=== PATIENT | female | born 1940 | race African-American/Black ===

== ENCOUNTER 2017-01-19 16:53 | Inpatient (IN) | payer MEDICARE, BC ==
--- NOTE | 2017-01-19 17:20 | ED Physician Chart ---
Chief Complaint/HPI - Patient Information Date Seen:: 01/19/17 Time Seen:: 17:00 Chief Complaint:: anorexia History of Present Illness:: for 5 days or longer patient has been anorexic and spitting out her medications. Patient has been losing weight but son doesn't know how much weight she has lost. No recent fever. Allergies:: Allergies Allergy/AdvReac Type Severity Reaction Status Date / Time No Known Allergies Allergy Verified 09/07/16 16:54 Historian:: Family Member Review:: Nurse's Note Reviewed Review of Systems - Review of Systems General/Constitutional: No fever, No chills, Weight loss, Weakness, No diaphoresis, Loss of appetite Skin: No skin lesions Head: No headache Eyes: No loss of vision ENT: No earache Neck: No neck pain, Swelling Cardio Vascular: No chest pain, No palpitations Pulmonary: No SOB GI: No nausea, No vomiting G/U: No dysuria Musculoskeletal: No bone or joint pain Endocrine: No polyuria Psychiatric: No prior psych history Hematopoietic: No bruising Allergic/Immuno: No urticaria Neurological: No syncope, No focal symptoms Past Medical History - Past Medical History Past Medical History: Thyroid disorder, Dementia, Other (dementia for several years; hyperthyroidism) Family History: Other Social History: Other (former smoker; used alcohol moderately in the past) Surgical History: CABG, other (4 vessel CABG 8-10 years ago) Psychiatricy History: Dementia Medication: Reviewed Family Medical History - Family Member Mother History Unknown: Yes Physical Exam - Physical Examination Other Gen/Cons comments:: chronically ill appearing in NAD Head: Atraumatic Eyes: Lids, conjuctiva normal, PERRL Other Eyes comments:: arcus senilis Skin: Nl inspection, No rash, No skin lesions, No ecchymosis ENMT: External ears, nose nl, TM canals nl, Nasal exam nl Other Neck comments:: JVD at about 50 degrees head elevation Respiratory: Nl effort/Exclusion, Clear to Auscultation Cardio Vascular: RRR, No murmur, gallop, rubs GI: No tenderness/rebounding/guarding, No organomegaly, No hernia : No CVA tenderness Other Extremities comments:: extreme arthritis hands Neuro/Psych: No focal deficits Misc: Normal back Labs/Radiology/EKG Results - Lab Results Results: Laboratory Results - last 24 hr 01/19/17 01/19/17 01/19/17 17:00 17:00 17:00 WBC 4.8 D RBC 3.33 L Hgb 10.2 L Hct 30.4 L MCV 91.3 MCH 30.6 MCHC Differential 33.6 RDW 12.9 Plt Count 172 MPV 8.6 Neutrophils (Manual) 43 Lymphocytes 37 Monocytes 16 H Eosinophils 4 Platelet Estimate ADEQUATE Platelet Morphology NORMAL RBC Morph Micro Appear NORMAL Sodium 137 Potassium 3.7 Chloride 104 Carbon Dioxide 27.2 Anion Gap 9.5 BUN 29 H Creatinine 1.1 Est GFR ( Amer) TNP Est GFR (Non-Af Amer) TNP BUN/Creatinine Ratio 26.4 Glucose 101 Calcium 9.7 Total Bilirubin Direct Bilirubin AST ALT Alkaline Phosphatase Total Protein Albumin Globulin Albumin/Globulin Ratio Lipase TSH 19.77 H Urine Source Urine Color Urine Clarity Urine pH Ur Specific [place] Urine Protein Urine Glucose (UA) Urine Ketones Urine Blood Urine Nitrate Urine Bilirubin Urine Urobilinogen Ur Leukocyte Esterase Urine RBC Urine WBC Ur Epithelial Cells Amorphous Sediment Urine Bacteria 01/19/17 01/19/17 01/19/17 17:00 17:00 17:35 WBC RBC Hgb Hct MCV MCH MCHC Differential RDW Plt Count MPV Neutrophils (Manual) Lymphocytes Monocytes Eosinophils Platelet Estimate Platelet Morphology RBC Morph Micro Appear Sodium Potassium Chloride Carbon Dioxide Anion Gap BUN Creatinine Est GFR ( Amer) Est GFR (Non-Af Amer) BUN/Creatinine Ratio Glucose Calcium Total Bilirubin 0.4 Direct Bilirubin 0.09 AST 29 ALT 21 Alkaline Phosphatase 48 Total Protein 7.2 Albumin 4.0 Globulin 3.2 Albumin/Globulin Ratio 1.3 Lipase 13 TSH Urine Source RANDOM Urine Color YELLOW Urine Clarity HAZY Urine pH 5.5 Ur Specific [place] 1.020 Urine Protein 100 H Urine Glucose (UA) NEGATIVE Urine Ketones NEGATIVE Urine Blood MODERATE H Urine Nitrate NEGATIVE Urine Bilirubin NEGATIVE Urine Urobilinogen 0.2 Ur Leukocyte Esterase SMALL H Urine RBC 2-5 Urine WBC 50-100 H Ur Epithelial Cells FEW Amorphous Sediment MODERATE URATES Urine Bacteria MANY - Radiology Results Results: CXR: s/p sterniotomy; possible COPD - EKG Interpretations Rhythm: NSR [place]: normal Rate: 60 Comments:: T inversion inferior leads Assessment - Assessment General Assessment: at 2020 son very concerned that patient has pain right axilla and adjacent right side of back; stated the pain present recently when he moved her in bed. I checked the area and saw no rash and there seemed to be no tenderness. ED Septic Shock - . Is Septic Shock (SBP<90, OR Lactate>4 mmol\L) present?: No Reassessment (Disposition) - Reassessment Reassessment Condition:: Unchanged - Diagnosis Diagnosis:: dehydration; UTI; dementi; hypothyroidism; arthritis - Patient Disposition Admitted to:: Med/Surg Spoke to:: Ben Seymour Admitting Medical Physician:: Ben Seymour Condition at Disposition:: Stable, Unchanged
[2017-01-19 17:40] LABS: HEMATOCRIT 30.4 % (35.0-45.0); HEMOGLOBIN 10.2 gm/dL (11.7-16.1); MEAN CELL VOLUME 91.3 fl (81-100); MEAN CORPUSCULAR HEMOGLOBIN 30.6 pg (27.0-31.0); MEAN CORPUSCULAR HGB CONC 33.6 pg (28.0-36.0); MEAN PLATELET VOLUME 8.6 fl; PLATELET COUNT 172 Th/cmm (150-400); RED BLOOD COUNT 3.33 Mil/cmm (3.80-5.20); RED CELL DISTRIBUTION WIDTH 12.9 % (11.5-20.0); WHITE BLOOD COUNT 4.8 Th/cmm (4.8-10.8)
[2017-01-19 17:47] LABS: ANION GAP 9.5 (7.0-16.0); BUN - UREA NITROGEN 29 mg/dL (7-25); BUN/CREATININE RATIO 26.4; CALCIUM SERUM 9.7 mg/dL (8.6-10.3); CARBON DIOXIDE 27.2 mEq/L (21.0-31.0); CHLORIDE 104 mEq/L (98-107); CREATININE - SERUM 1.1 mg/dL (0.6-1.2); GLUCOSE 101 mg/dL (70-105); POTASSIUM SERUM 3.7 mEq/L (3.5-5.1); SODIUM SERUM 137 mEq/L (136-145)
[2017-01-19 17:51] LABS: ALB/GLOB RATIO 1.3 (1.0-1.8); BILIRUBIN,TOTAL 0.4 mg/dL (0.3-1.0)
[2017-01-19 17:52] LABS: BILIRUBIN,DIRECT 0.09 mg/dL (0.0-0.2)
[2017-01-19] MEDS ORDERED: Sodium Chloride 0.9% 1,000 ML IV ONE (17:56)
[2017-01-19 18:05] LABS: URINE AMORPHOUS SEDIMENT MODERATE URATES (NONE SEEN); URINE BACTERIA MANY /hpf (NONE SEEN); URINE BILIRUBIN NEGATIVE (NEGATIVE); URINE BLOOD MODERATE (NEGATIVE); URINE COLOR YELLOW; URINE EPITHELIAL CELLS FEW /lpf (FEW); URINE GLUCOSE (UA) NEGATIVE (NEGATIVE); URINE KETONE NEGATIVE (NEGATIVE); URINE PH 5.5; URINE PROTEIN 100 mg/dL (NEGATIVE); URINE UROBILINOGEN 0.2 E.U./dL (0.2 - 1.0)
[2017-01-19 18:06] LABS: URINE WBC 50-100 /hpf (0-5)
[2017-01-19 18:15] LABS: EOSINOPHIL 4 % (0-5); NEUTROPHILS 43 % (40-80); PLATELET ESTIMATE ADEQUATE (NORMAL); PLATELET MORPHOLOGY NORMAL (NORMAL); TOTAL CELLS COUNTED 100
[2017-01-20] MEDS ORDERED: Influenza Vaccine 0.5 mL Syr IM ONE (03:35)
[2017-01-20] MEDS ORDERED: Pneumococcal Vaccine 0.5 mL Vial IM ONE (03:35)
[2017-01-20 05:58] LABS: HEMATOCRIT 29.1 % (35.0-45.0); HEMOGLOBIN 9.7 gm/dL (11.7-16.1); MEAN CELL VOLUME 91.1 fl (81-100); MEAN CORPUSCULAR HEMOGLOBIN 30.3 pg (27.0-31.0); MEAN CORPUSCULAR HGB CONC 33.3 pg (28.0-36.0); PLATELET COUNT 164 Th/cmm (150-400); RED BLOOD COUNT 3.19 Mil/cmm (3.80-5.20); RED CELL DISTRIBUTION WIDTH 12.7 % (11.5-20.0); WHITE BLOOD COUNT 5.4 Th/cmm (4.8-10.8)
[2017-01-20 06:17] LABS: ALKALINE PHOSPHATASE 40 U/L (34-104); ANION GAP 12.7 (7.0-16.0); BILIRUBIN,TOTAL 0.3 mg/dL (0.3-1.0); BUN - UREA NITROGEN 23 mg/dL (7-25); BUN/CREATININE RATIO 28.8; CALCIUM SERUM 8.8 mg/dL (8.6-10.3); CARBON DIOXIDE 24.8 mEq/L (21.0-31.0); CHLORIDE 105 mEq/L (98-107); CHOLESTEROL 144 mg/dL (<200); CREATININE - SERUM 0.8 mg/dL (0.6-1.2); GLUCOSE 128 mg/dL (70-105); MAGNESIUM 1.6 mg/dL (1.9-2.7); POTASSIUM SERUM 3.5 mEq/L (3.5-5.1); SGOT 22 U/L (13-39); SGPT/ALT 16 U/L (7-52); SODIUM SERUM 139 mEq/L (136-145); TRIGLYCERIDES 94 mg/dL (<150)
--- NOTE | 2017-01-20 08:52 | Admit Criteria Form ---
Admit Criteria Forms - Admit Criteria Diagnosis: DEHYDRATION Clinical Indications for Admission to Inpatient Care (Place 'X' for any and all applicable criteria): Admission is indicated for ANY ONE of the following (1)(2)(3)(4)(5): [X ]I. Inpatient admission required rather than observation care (see Dehydration: Observation Care guideline as appropriate) because of ANY ONE of the following: [ ]a) Vomiting that is severe or persistent [ ]b) Severe electrolyte abnormalities requiring inpatient care [ ]c) Hemodynamic instability [ ]d) IV fluid to replace significant ongoing losses (greater than 3 L/m2 per day (10) (11) [ ]e) Parenteral nutrition regimen that must be implemented on inpatient basis [ X]f) Other condition,treatment or monitoring requiring inpatient admission [ ]II. Serious cause for dehydration requiring acute hospitalization (eg, bowel obstruction, increased intracranial pressure, infectious cause) Extended stay beyond goal length of stay may be needed for(1)(3 )(4)(17): [ ]a) Chronic severe dehydration [ ]b) Persistent vital sign changes, severe electrolyte imbalance, or diagnosed cause of dehydration that requires continued hospitalization (eg, bowel obstruction, increased intracranial pressure) [ ]c) Older patients (65 years or older) [ ]d) Severe comorbid illness (eg, renal failure, heart failure, poorly controlled diabetes) The original [employer] content created by [email or web address] has been revised. The portions of the content which have been revised are identified through the use of italic text or in bold, and [facility] has neither reviewed nor approved the modified material. All other unmodified content is copyright [facility]. Please see references footnoted in the original [facility] edition 2016 Admit Criteria Met?: Yes
[2017-01-20 09:02] LABS: BAND NEUTROPHILE 1 % (0-10); BASOPHIL 1 % (0-3); EOSINOPHIL 7 % (0-5); NEUTROPHILS 38 % (40-80); PLATELET ESTIMATE ADEQUATE (NORMAL); PLATELET MORPHOLOGY NORMAL (NORMAL); TOTAL CELLS COUNTED 100
--- NOTE | 2017-01-20 09:07 | Diagnostic Imaging Report ---
CHEST X-RAY: AP view INDICATION: Failure to thrive COMPARISON: Chest x-ray 09/07/2016 FINDINGS: Exam is limited due to positioning and rotation. No focal consolidation or effusions. Heart size is normal. Atherosclerosis is noted. There is evidence of prior median sternotomy. The osseous structures are intact. IMPRESSION: Limited exam due to positioning and rotation. Chronic lung changes are noted with no focal consolidation identified. Atherosclerotic vascular disease. Evidence of prior median sternotomy.
[2017-01-20 09:28] LABS: T4 TOTAL 2.64 ug/dl (6.09-12.23)
[2017-01-20] MEDS ORDERED: Mag Sulfate 2gm/50mL Premix 2 GM/50 ML BAG IV ONE (09:52)
[2017-01-20] MEDS: Albuterol/Ipratropium Neb 3 ML AERS HHN SCH ×3 (10:57→19:05)
--- NOTE | 2017-01-20 13:09 | History & Physical ---
REASON FOR ADMISSION: Failure to thrive, anorexia. HISTORY OF PRESENT ILLNESS: The patient is a 76-year-old -[place] lady with history of advanced dementia, hyperthyroidism, CAD status post CABG with 4-vessel bypass done about 8-10 years ago, history of osteoarthritis, former nicotine user who is pretty much bedbound per son's account. She was doing relatively well until about 6 days ago when she suddenly had pronounced and noticeable anorexia with a very minimal poor p.o. intake and decreased sensorium. On further questioning, son states that she looked a little weak a few weeks prior to that, but was still eating most her meals. She has no history of dysphagia and has not had any choking or coughing spells prior to this episode beginning. There is no history of fever, chills, diarrhea or abdominal pain. Per son's account, she does complain of right shoulder, arm pain, which is more pronounced when she is being picked up from bed. PERTINENT FINDINGS ON ADMISSION: Include a low H and H of 10/30, BUN of 29 and a TSH of 19.7 and a UA consistent with a UTI. The patient has been admitted to the telemetry topete for further management and care. PAST MEDICAL HISTORY: As noted above. PAST SURGICAL HISTORY: As noted above. FAMILY HISTORY: Noncontributory to this admission. SOCIAL HISTORY: Former smoker, no alcohol. No illicit drug usage. She is bedbound and lives with family at home. ALLERGIES: NKDA. OUTPATIENT MEDICATIONS: Tapazole 5 t.i.d., Coreg 12.5 b.i.d., vitamin D 50,000 units q week, Levaquin 250 every day, Namenda 5 every day, oxybutynin 5 mg t.i.d., and Zocor 40 mg q.p.m. REVIEW OF SYSTEMS: A good review of systems was not able to be provided, given that the patient is nonverbal, all other history was obtained per son's history. GENERAL: No fever or chills noted. CARDIAC: No chest pain or palpitations. PULMONARY: No cough or sputum production. GASTROINTESTINAL: No bowel habit changes. No abdominal pain, no diarrhea, nausea or vomiting. GENITOURINARY: No hematuria. NEUROLOGIC: Decreased sensorium as noted above. PHYSICAL EXAMINATION: VITAL SIGNS: Temperature 98.4, pulse 60, blood pressure 137/55, respirations 18, satting 98% on room air. GENERAL: She is a well-developed, thin, frail elderly female, not in acute distress. On verbal commands, she opens her eyes and nods her heads, but she is non-conversive. HEAD AND NECK: Normocephalic, atraumatic. Pupils reactive to light. CARDIOVASCULAR: Regular rate and rhythm. LUNGS: There are mild crackles and some wheezing noted bilaterally. ABDOMEN: Soft, supple, nontender, nondistended, normoactive bowel sounds. EXTREMITIES: On lower extremity, there is trace edema. NEUROLOGIC: Not able to be completely done given the patient's current condition. LABORATORY DATA: White count 4.8, H and H 10/30, platelet of 172. Chemistry was essentially within normal limits except for a BUN of 29. LFTs were within normal limits. TSH as mentioned above 19.7. UA, moderate blood, small leukocytosis, 50-100 wbc's. Chest x-ray, limited exam due to positioning and rotation. Chronic lung changes are noted with no focal consolidation. There is evidence of atherosclerotic vascular disease and evidence of mediastinotomy. IMPRESSION: 1. Failure to thrive, anorexia, likely secondary to urinary tract infection/sepsis and her current hypothyroidism state given her TSH results. 2. History of hyperthyroidism with an elevated TSH. 3. Urinary tract infection. 4. History of advanced dementia. 5. History of coronary artery disease status post CABG. 6. History of osteoarthritis. 7. History of right shoulder pain. PLAN: The patient has been admitted to telemetry for further management and care. She has been started on IV fluids D5 half NS at 75 mL per hour. She also has been started on Rocephin 1 gram q. 24 and also Remeron 30 mg at bedtime and Megace for appetite stimulation. Her Tapazole has been discontinued and her other medications will also be resumed. I have asked for an ST eval as well as a dietary eval. The patient will also be placed on nebulizer treatments and a followup x-ray will be done. A prealbumin level also has been asked for. JOB# [id number] [facility]
[2017-01-20] MEDS ORDERED: VTE Chemical Prophylaxis Screen/Admission MC PRN (15:24)
[2017-01-21 06:27] LABS: MEAN CORPUSCULAR HEMOGLOBIN 30.9 pg (27.0-31.0)
[2017-01-21 06:49] LABS: ANION GAP 7.7 (7.0-16.0); BUN - UREA NITROGEN 21 mg/dL (7-25); BUN/CREATININE RATIO 23.3; CALCIUM SERUM 9.3 mg/dL (8.6-10.3); CARBON DIOXIDE 25.5 mEq/L (21.0-31.0); CHLORIDE 108 mEq/L (98-107); CREATININE - SERUM 0.9 mg/dL (0.6-1.2); GLUCOSE 99 mg/dL (70-105); MAGNESIUM 2.2 mg/dL (1.9-2.7); POTASSIUM SERUM 4.2 mEq/L (3.5-5.1); SODIUM SERUM 137 mEq/L (136-145)
[2017-01-21 07:05] LABS: HEMATOCRIT 32.6 % (35.0-45.0); HEMOGLOBIN 11.1 gm/dL (11.7-16.1); RED BLOOD COUNT 3.59 Mil/cmm (3.80-5.20); WHITE BLOOD COUNT 6.7 Th/cmm (4.8-10.8)
[2017-01-21 07:06] LABS: MEAN PLATELET VOLUME 8.4 fl; PLATELET COUNT 189 Th/cmm (150-400); RED CELL DISTRIBUTION WIDTH 12.7 % (11.5-20.0)
[2017-01-21] MEDS: Albuterol/Ipratropium Neb 3 ML AERS HHN SCH ×4 (07:23→18:46)
[2017-01-21 09:13] LABS: T4 FREE 0.37 ng/dL (0.82-1.77)
--- NOTE | 2017-01-21 09:27 | Diagnostic Imaging Report ---
CHEST X-RAY: AP view INDICATION: Crackles COMPARISON: Chest x-ray on 01/19/2017 FINDINGS: Chronic lung changes are seen with left basal atelectatic changes. No evidence of christian CHF. Cardiomegaly is noted atherosclerosis. There is rightward deviation of the trachea. IMPRESSION: Chronic lung changes and left basal atelectasis. No evidence of christian CHF. No focal consolidation identified. Cardiomegaly and atherosclerosis. Rightward deviation of the trachea. Findings may be due to an enlarged thyroid goiter or other mass lesions. Recommend short-term follow-up with CT of the chest probable with IV contrast.
[2017-01-21 11:08] LABS: EOSINOPHIL 6 % (0-5); NEUTROPHILS 32 % (40-80); PLATELET ESTIMATE ADEQUATE (NORMAL); PLATELET MORPHOLOGY NORMAL (NORMAL); TOTAL CELLS COUNTED 100
[2017-01-21 13:09] LABS: CARCINOEMBRYONIC ANTIGEN 5.1 ng/mL (0.0-4.7)
[2017-01-21] MEDS: Ferrous Sulfate 325 MG TAB PO SCH ×2 (16:46→21:28)
[2017-01-22 05:58] LABS: % BASOPHILS 0.5 % (0.0-2.0); % EOSINOPHILS 4.3 % (0.0-5.0); % LYMPHOCYTES 34.9 % (20.0-50.0); % MONOCYTES 13.7 % (2.0-10.0); % NEUTROPHILS 46.6 % (40.0-80.0); HEMOGLOBIN 10.1 gm/dL (11.7-16.1); MEAN CELL VOLUME 90.5 fl (81-100); MEAN CORPUSCULAR HEMOGLOBIN 30.6 pg (27.0-31.0); MEAN CORPUSCULAR HGB CONC 33.9 pg (28.0-36.0); MEAN PLATELET VOLUME 8.3 fl; NEUTROPHILE ABSOLUTE 3.7 Th/cmm (1.8-8.0); PLATELET COUNT 206 Th/cmm (150-400); RED BLOOD COUNT 3.31 Mil/cmm (3.80-5.20); RED CELL DISTRIBUTION WIDTH 12.8 % (11.5-20.0); WHITE BLOOD COUNT 7.8 Th/cmm (4.8-10.8)
[2017-01-22 06:15] LABS: ANION GAP 10.2 (7.0-16.0); BUN - UREA NITROGEN 23 mg/dL (7-25); BUN/CREATININE RATIO 28.8; CALCIUM SERUM 9.5 mg/dL (8.6-10.3); CARBON DIOXIDE 25.7 mEq/L (21.0-31.0); CHLORIDE 107 mEq/L (98-107); CREATININE - SERUM 0.8 mg/dL (0.6-1.2); GLUCOSE 97 mg/dL (70-105); POTASSIUM SERUM 3.9 mEq/L (3.5-5.1); SODIUM SERUM 139 mEq/L (136-145)
[2017-01-22] MEDS: Albuterol/Ipratropium Neb 3 ML AERS HHN SCH ×4 (07:20→19:08)
[2017-01-22] MEDS: Ferrous Sulfate 325 MG TAB PO SCH ×3 (09:46→21:09)
--- NOTE | 2017-01-22 10:50 | Diagnostic Imaging Report ---
CT Chest without IV contrast HISTORY: Mass, goiter COMPARISON: Chest x-ray the same day. Technique: Axial images were obtained from the base of the neck to the upper abdomen without IV contrast. Reconstructions were made. Total DLP 193, CTD I 191 Findings: The patient is status post median sternotomy. There is a massively enlarged thyroid goiter with heterogeneity and probable small nodules. On the left this area measures 8 cm transverse x 10 cm craniocaudal with mass effect upon the trachea and leftward tracheal shift and associated marked narrowing of the mid trachea. Heavy atherosclerotic vascular disease is seen including coronary artery calcifications. Note assessment of the mediastinum is limited due to lack of IV contrast. No evidence of a pericardial effusion. Distended fluid-filled esophagus is noted. Hypoventilatory and atelectatic changes of lung bases are seen with trace bilateral effusions and mild bibasal infiltrates noted. Chronic lung changes are seen with mild emphysematous changes The upper abdomen demonstrates a gallstones. Right renal calculi are also noted. Degenerative changes of the spine are noted. Osteopenia is noted. Scoliosis is noted. IMPRESSION: Massively enlarged thyroid mass/goiter, Particularly on the left side with extension to the mediastinum and mass effect and marked narrowing of the mid trachea. There is also leftward tracheal shift. Please correlate with clinical findings. Fluid and air distended esophagus noted. Atelectatic lung changes are seen with mild bibasal infiltrates and trace bilateral effusions. Heavy atherosclerotic vascular disease including coronary artery calcifications Evidence of prior median sternotomy. Gallstones. Right renal stones.
[2017-01-22] MEDS: D5-0.45NS 1,000 ML IV SCH (22:02)
[2017-01-22] MEDS: cefTRIAXone 1 GM in Sodium Chloride 0.9% 50 ML IV SCH ×2 (22:03→22:05)
[2017-01-23] MEDS: Levothyroxine 0.15 Mg Tab PO SCH (06:53)
[2017-01-23 07:33] LABS: ANION GAP 7.6 (7.0-16.0); BUN - UREA NITROGEN 22 mg/dL (7-25); BUN/CREATININE RATIO 27.5; CARBON DIOXIDE 25.8 mEq/L (21.0-31.0); CHLORIDE 107 mEq/L (98-107); CREATININE - SERUM 0.8 mg/dL (0.6-1.2); GLUCOSE 88 mg/dL (70-105); POTASSIUM SERUM 4.4 mEq/L (3.5-5.1); SODIUM SERUM 136 mEq/L (136-145)
[2017-01-23] MEDS: Albuterol/Ipratropium Neb 3 ML AERS HHN SCH ×4 (07:39→19:41)
[2017-01-23 07:45] LABS: % BASOPHILS 0.7 % (0.0-2.0); % EOSINOPHILS 2.7 % (0.0-5.0); % LYMPHOCYTES 29.3 % (20.0-50.0); % MONOCYTES 10.7 % (2.0-10.0); % NEUTROPHILS 56.6 % (40.0-80.0); HEMATOCRIT 29.6 % (35.0-45.0); HEMOGLOBIN 10.2 gm/dL (11.7-16.1); MEAN CELL VOLUME 89.5 fl (81-100); MEAN CORPUSCULAR HEMOGLOBIN 30.8 pg (27.0-31.0); MEAN CORPUSCULAR HGB CONC 34.4 pg (28.0-36.0); MEAN PLATELET VOLUME 8.7 fl; NEUTROPHILE ABSOLUTE 5.2 Th/cmm (1.8-8.0); PLATELET COUNT 194 Th/cmm (150-400); RED CELL DISTRIBUTION WIDTH 12.8 % (11.5-20.0)
[2017-01-23 07:49] LABS: WHITE BLOOD COUNT 9.4 Th/cmm (4.8-10.8)
[2017-01-23] MEDS: Ferrous Sulfate 325 MG TAB PO SCH ×3 (09:33→21:39)
--- NOTE | 2017-01-23 16:43 | Diagnostic Imaging Report ---
Thyroid ultrasound HISTORY: Thyroid enlargement The right lobe of the thyroid gland exhibits enlargement (6.0 x 2.2 0.9 cm. Multiple heterogeneous nodules with solid characteristics noted in the upper, mid, and lower pole regions. The largest measures 2.2 x 1.5 x 1.9 cm. There is extreme enlargement of the left lobe of thyroid gland (11.2 x 5.0 x 5.7 cm). There is a extensive abnormal heterogeneous parenchyma with ill-defined nodular changes. The margins are difficult to define. An approximate 1.3 x 1.9 cm heterogeneous nodule is noted in the isthmus region of the thyroid gland. IMPRESSION: 1. Extreme enlargement of the left lobe of the thyroid gland with a markedly abnormal heterogeneous parenchymal appearance. Enlargement of the right lobe of the thyroid gland with multiple heterogeneous solid nodules as noted above. The finding should be correlated clinically and with thyroid function tests. It should be noted that the histology of an individual thyroid nodule cannot be definitely determined sonographically. If necessary, fine needle aspiration may provide additional assessment.
[2017-01-23] MEDS: D5-0.45NS 1,000 ML IV SCH (16:47)
--- NOTE | 2017-01-23 16:56 | Discharge Summary ---
ADMITTING DIAGNOSES: 1. Chest pain, rule out acute coronary syndrome. 2. Left shoulder pain. 3. Urinary tract infection. 4. Bradycardia. SECONDARY DIAGNOSES: 1. History of hypertension. 2. Diabetes. 3. Hypothyroidism. DISCHARGE DIAGNOSES: 1. Chest pain, rule out acute coronary syndrome. Workup negative. 2. Left shoulder osteoarthritis-improving. cont on nsaids. 3. Urinary tract infection. 4. Bradycardia. CONSULTANTS: Dr. Meghana Michael, Cardiology. MAJOR PROCEDURES: There was a 2D echo done on 01/20/2017 showing left ventricular ejection fraction of 50% to 55% with no effusions and there was a left shoulder x-ray done on 01/19/2017 showing no evidence of fracture. There are DJD changes moderate to advanced at the AC joint. DISCHARGE MEDICATIONS: Aspirin 81 every day, ciprofloxacin 250 b.i.d. x 7 days, Lomotil 1 tab q.i.d. p.r.n. for diarrhea, Colace 100 daily, vitamin D 50,000 international units q. week, Prozac 20 mg every day, gabapentin 200 mg every day, insulin sliding scale per protocol, detemir insulin 10 units at bedtime, levothyroxine 50 mcg every day, lisinopril 20 mg b.i.d., Imodium 2 mg every day p.r.n. for diarrhea, nitroglycerin p.r.n., Topamax 25 b.i.d., Glucophage 1000 mg b.i.d. with meals, tramadol 50 mg q.12 p.r.n. for moderate pain. Diclofenac 7.5mg qday, lipitor 10mg qday. BRIEF HOSPITAL COURSE: A 70-year-old female who was brought in from [facility] with complaints of left-sided chest pain, left shoulder pain that had been present on and off for about 2 weeks. The patient denied any similar episodes; but she does have a medical history significant for hypertension, diabetes, and hyperlipidemia. She also has multiple relatives on her mom side with CAD. The patient was admitted through the ER, was ruled out with cardiac enzymes and EKGs, and underwent 2D echo that was mentioned above. Her chest pain did improve slowly and she had no angina-type symptoms. Initially, she did not have chest wall pain on PE, but eventually she said that the pain was worsened with her left shoulder movement. She was placed on NSAIDs with improvement of her symptoms and again has remained asymptomatic since being admitted with no arrhythmias noted on the personnel monitor. The patient was seen by Dr. Alexander Michael and I have explained her current results and findings. She is agreeable to be discharged DISPOSITION: The patient will be discharged back to [facility]. I have also recommended the patient to follow up with her theatre professor or Dr. Michael to set up an outpatient stress test given her multiple risk factors. She is agreeable to this as well. [facility]# [id number] MTDD
[2017-01-23] MEDS: cefTRIAXone 1 GM in Sodium Chloride 0.9% 50 ML IV SCH (23:30)
[2017-01-24] MEDS: Levothyroxine 0.15 Mg Tab PO SCH (06:51)
[2017-01-24] MEDS: Albuterol/Ipratropium Neb 3 ML AERS HHN SCH ×3 (07:20→18:53)
[2017-01-24 07:27] LABS: BUN - UREA NITROGEN 15 mg/dL (7-25); BUN/CREATININE RATIO 18.8; CALCIUM SERUM 9.6 mg/dL (8.6-10.3); CARBON DIOXIDE 23.4 mEq/L (21.0-31.0); CHLORIDE 110 mEq/L (98-107); CREATININE - SERUM 0.8 mg/dL (0.6-1.2); GLUCOSE 96 mg/dL (70-105); MAGNESIUM 1.5 mg/dL (1.9-2.7); POTASSIUM SERUM 4.4 mEq/L (3.5-5.1); SODIUM SERUM 139 mEq/L (136-145)
[2017-01-24 07:35] LABS: % BASOPHILS 0.5 % (0.0-2.0); % EOSINOPHILS 4.2 % (0.0-5.0); % LYMPHOCYTES 33.8 % (20.0-50.0); % MONOCYTES 12.7 % (2.0-10.0); % NEUTROPHILS 48.8 % (40.0-80.0); HEMATOCRIT 30.4 % (35.0-45.0); HEMOGLOBIN 10.4 gm/dL (11.7-16.1); MEAN CELL VOLUME 90.5 fl (81-100); MEAN CORPUSCULAR HEMOGLOBIN 30.9 pg (27.0-31.0); MEAN CORPUSCULAR HGB CONC 34.1 pg (28.0-36.0); NEUTROPHILE ABSOLUTE 4.3 Th/cmm (1.8-8.0); PLATELET COUNT 196 Th/cmm (150-400); RED BLOOD COUNT 3.36 Mil/cmm (3.80-5.20); RED CELL DISTRIBUTION WIDTH 13.1 % (11.5-20.0); WHITE BLOOD COUNT 8.8 Th/cmm (4.8-10.8)
[2017-01-24] MEDS: cefTRIAXone 1 GM in Sodium Chloride 0.9% 50 ML IV SCH ×3 (08:09→22:00)
[2017-01-24 08:43] LABS: INR 1.09 (0.5-1.4); PROTHROMBIN TIME (TEST) 11.3 SECONDS (9.5-11.5)
[2017-01-24] MEDS: Ferrous Sulfate 325 MG TAB PO SCH ×3 (08:57→20:25)
[2017-01-24 15:11] LABS: T3 FREE 4.4 pg/mL (2.0-4.4); T4 FREE 0.82 ng/dL (0.82-1.77)
[2017-01-24] MEDS: D5-0.45NS 1,000 ML IV SCH ×5 (16:59→17:02)
[2017-01-24] MEDS ORDERED: Mag Sulfate 2gm/50mL Premix 2 GM/50 ML BAG IV ONE (22:38)
[2017-01-25] MEDS: Levothyroxine 0.15 Mg Tab PO SCH (06:33)
[2017-01-25] MEDS: Albuterol/Ipratropium Neb 3 ML AERS HHN SCH ×4 (07:08→18:56)
[2017-01-25 07:12] LABS: % BASOPHILS 0.8 % (0.0-2.0); % EOSINOPHILS 3.6 % (0.0-5.0); % MONOCYTES 12.2 % (2.0-10.0); % NEUTROPHILS 51.4 % (40.0-80.0); HEMATOCRIT 28.6 % (35.0-45.0); HEMOGLOBIN 9.8 gm/dL (11.7-16.1); MEAN CORPUSCULAR HEMOGLOBIN 30.7 pg (27.0-31.0); MEAN CORPUSCULAR HGB CONC 34.1 pg (28.0-36.0); MEAN PLATELET VOLUME 8.1 fl; NEUTROPHILE ABSOLUTE 4.1 Th/cmm (1.8-8.0); PLATELET COUNT 214 Th/cmm (150-400); RED BLOOD COUNT 3.18 Mil/cmm (3.80-5.20); RED CELL DISTRIBUTION WIDTH 13.1 % (11.5-20.0); WHITE BLOOD COUNT 8.1 Th/cmm (4.8-10.8)
[2017-01-25 07:39] LABS: ANION GAP 7.6 (7.0-16.0); BUN - UREA NITROGEN 15 mg/dL (7-25); BUN/CREATININE RATIO 18.8; CALCIUM SERUM 9.7 mg/dL (8.6-10.3); CARBON DIOXIDE 24.3 mEq/L (21.0-31.0); CHLORIDE 110 mEq/L (98-107); CREATININE - SERUM 0.8 mg/dL (0.6-1.2); GLUCOSE 87 mg/dL (70-105); MAGNESIUM 1.7 mg/dL (1.9-2.7); POTASSIUM SERUM 3.9 mEq/L (3.5-5.1); SODIUM SERUM 138 mEq/L (136-145)
[2017-01-25] MEDS: Ferrous Sulfate 325 MG TAB PO SCH ×3 (09:47→20:28)
--- NOTE | 2017-01-25 10:07 | Diagnostic Imaging Report ---
CHEST X-RAY: AP view INDICATION: Coarse breath sounds COMPARISON: Chest x-ray 01/21/[address] on 01/21/2017 FINDINGS: Chronic lung changes are seen with no focal consolidation or effusions. Suboptimal lung markings are noted. Cardiomegaly is noted with atherosclerosis. Degenerative changes of the spine are noted. Prominent soft tissue density of the neck region is again noted. IMPRESSION: Suboptimal lung volumes. Chronic lung changes with no focal consolidation or evidence of christian CHF. Prominent soft tissue density of the upper mediastinum corresponding to patient's enlarged nodular thyroid goiter. Cardiomegaly with atherosclerosis.
[2017-01-25] MEDS ORDERED: Azithromycin 500 MG in Sodium Chloride 0.9% 250 ML IV SCH (11:00)
[2017-01-25] MEDS ORDERED: Mag Sulfate 2gm/50mL Premix 2 GM/50 ML BAG IV ONE (11:00)
--- NOTE | 2017-01-25 16:21 | Pathology Report ---
[id number] Collection Date: 01/24/2017 Surgeon: Dr. Merlene Elmore Specimen Description: 1. Left thyroid aspiration cytology 2. Right thyroid aspiration cytology 3. Left thyroid needle biopsy Gross Description: Part I: Received in alcohol fixative are six smeared glass slides labeled with the specimen number and medical record number. The entire specimen is sent for Pap staining. Gross Description: Part II: Received in alcohol fixative are six smeared glass slides that are labeled with the specimen number and medical record number. The entire specimen is sent for Pap staining. Gross Description: Part III: Received in formalin are multiple portions of blood clot admixed with several thin cylinders of coleman soft tissue ranging from 0.1 to 0.2 cm in length. Totally submitted in one cassette. Microscopic Description: Part I: Examination of six Pap stained slides shows adequate specimen cellularity consisting of several dozen clusters of thyroid follicular cells found in cohesive clusters of more than 10 cells. There is no evidence for atypia. The background consists of patchy areas of colloid. Diagnosis: Part I: No cytologic evidence for malignancy, left thyroid aspiration cytology. Microscopic Description: Part II: Examination of six Pap stained slides shows scanty specimen cellularity consisting of only 6 to 7 small clusters of thyroid epithelial cells with the background containing abundant blood and focal areas of colloid. There is no evidence for atypia. Diagnosis: Part II: No cytologic evidence for malignancy, right thyroid aspiration cytology. Microscopic Description: Part III: The histologic sections show several small fragments of benign thyroid tissue consisting of small and medium sized thyroid follicles that are lined by benign epithelial cells. There is no evidence for atypia. Diagnosis: Part III: No evidence for malignancy (left thyroid needle biopsy). Comment: These findings are discussed with Dr. Merlene Elmore and Dr. Garcia Ho on January 26, 2017. [facility]# [id number] [facility]
--- NOTE | 2017-01-25 17:55 | General Progress Note ---
Subjective - Review of Systems Service Date: 01/25/17 Events since last encounter: large thyroid enlargement worse on the left side with severe compression of the trachea thyroidectomy could involve permaent tracheostomy, bleeding from engorged veins is added risk will recommend conservative management Objective - Results Result Diagrams: 01/25/17 06:45 01/25/17 06:45 Recent Labs: Laboratory Last Values WBC 8.1 Th/cmm (4.8-10.8) 01/25/17 06:45 RBC 3.18 Mil/cmm (3.80-5.20) L 01/25/17 06:45 Hgb 9.8 gm/dL (11.7-16.1) L 01/25/17 06:45 Hct 28.6 % (35.0-45.0) L 01/25/17 06:45 MCV 90.0 fl (81-100) 01/25/17 06:45 MCH 30.7 pg (27.0-31.0) 01/25/17 06:45 MCHC Differential 34.1 pg (28.0-36.0) 01/25/17 06:45 RDW 13.1 % (11.5-20.0) 01/25/17 06:45 Plt Count 214 Th/cmm (150-400) 01/25/17 06:45 MPV 8.1 fl 01/25/17 06:45 Neutrophils % 51.4 % (40.0-80.0) 01/25/17 06:45 Band Neutrophils % 1 % (0-10) 01/20/17 05:45 Lymphocytes % 32.0 % (20.0-50.0) 01/25/17 06:45 Monocytes % 12.2 % (2.0-10.0) H 01/25/17 06:45 Eosinophils % 3.6 % (0.0-5.0) 01/25/17 06:45 Basophils % 0.8 % (0.0-2.0) 01/25/17 06:45 Neutrophils (Manual) 32 % (40-80) L 01/21/17 05:30 Lymphocytes 52 % (20-50) H 01/21/17 05:30 Monocytes 10 % (2-10) 01/21/17 05:30 Eosinophils 6 % (0-5) H 01/21/17 05:30 Basophils 1 % (0-3) 01/20/17 05:45 Platelet Estimate ADEQUATE (NORMAL) 01/21/17 05:30 Platelet Morphology NORMAL (NORMAL) 01/21/17 05:30 RBC Morph Micro Appear NORMAL (NORMAL) 01/21/17 05:30 PT 11.3 SECONDS (9.5-11.5) 01/24/17 07:45 INR 1.09 (0.5-1.4) 01/24/17 07:45 PTT (Actin FS) 31.6 SECONDS (26.0-38.0) 01/24/17 07:45 Sodium 138 mEq/L (136-145) 01/25/17 06:45 Potassium 3.9 mEq/L (3.5-5.1) 01/25/17 06:45 Chloride 110 mEq/L (98-107) H 01/25/17 06:45 Carbon Dioxide 24.3 mEq/L (21.0-31.0) 01/25/17 06:45 Anion Gap 7.6 (7.0-16.0) 01/25/17 06:45 BUN 15 mg/dL (7-25) 01/25/17 06:45 Creatinine 0.8 mg/dL (0.6-1.2) 01/25/17 06:45 Est GFR ( Amer) TNP 01/25/17 06:45 Est GFR (Non-Af Amer) TNP 01/25/17 06:45 BUN/Creatinine Ratio 18.8 01/25/17 06:45 Glucose 87 mg/dL (70-105) 01/25/17 06:45 Calcium 9.7 mg/dL (8.6-10.3) 01/25/17 06:45 Magnesium 1.7 mg/dL (1.9-2.7) L 01/25/17 06:45 Iron 31 ug/dL (27-139) 01/20/17 10:30 TIBC 166 ug/dL (250-450) L 01/20/17 10:30 Iron Saturation 19 % (15-55) 01/20/17 10:30 Unsaturated IBC 135 ug/dL (118-369) 01/20/17 10:30 Ferritin 473 ng/mL (15-150) H 01/20/17 10:30 Total Bilirubin 0.3 mg/dL (0.3-1.0) 01/20/17 05:45 Direct Bilirubin 0.09 mg/dL (0.0-0.2) 01/19/17 17:00 AST 22 U/L (13-39) 01/20/17 05:45 ALT 16 U/L (7-52) 01/20/17 05:45 Alkaline Phosphatase 40 U/L (34-104) 01/20/17 05:45 Total Protein 6.5 gm/dL (6.0-8.3) 01/20/17 05:45 Albumin 3.3 gm/dL (3.7-5.3) L 01/20/17 05:45 Globulin 3.2 gm/dL 01/20/17 05:45 Albumin/Globulin Ratio 1.0 (1.0-1.8) 01/20/17 05:45 Prealbumin 15 mg/dL (9-32) 01/20/17 05:45 Triglycerides 94 mg/dL (<150) 01/20/17 05:45 Cholesterol 144 mg/dL (<200) 01/20/17 05:45 LDL Cholesterol Direct 88 mg/dL (75-193) 01/20/17 05:45 HDL Cholesterol 36 mg/dL (23-92) 01/20/17 05:45 Lipase 13 U/L (11-82) 01/19/17 17:00 Carcinoembryonic Ag 5.1 ng/mL (0.0-4.7) H 01/20/17 10:30 Free T4 0.82 ng/dL (0.82-1.77) 01/23/17 06:35 Thyroxine (T4) 2.64 ug/dl (6.09-12.23) L 01/20/17 05:45 Free T3 4.4 pg/mL (2.0-4.4) 01/23/17 06:35 TSH 7.35 uIU/ml (0.34-5.60) H 01/23/17 06:35 Urine Source RANDOM 01/19/17 17:35 Urine Color YELLOW 01/19/17 17:35 Urine Clarity HAZY (CLEAR) 01/19/17 17:35 Urine pH 5.5 01/19/17 17:35 Ur Specific [place] 1.020 (1.005-1.030) 01/19/17 17:35 Urine Protein 100 mg/dL (NEGATIVE) H 01/19/17 17:35 Urine Glucose (UA) NEGATIVE mg/dL (NEGATIVE) 01/19/17 17:35 Urine Ketones NEGATIVE mg/dL (NEGATIVE) 01/19/17 17:35 Urine Blood MODERATE (NEGATIVE) H 01/19/17 17:35 Urine Nitrate NEGATIVE (NEGATIVE) 01/19/17 17:35 Urine Bilirubin NEGATIVE (NEGATIVE) 01/19/17 17:35 Urine Urobilinogen 0.2 E.U./dL (0.2 - 1.0) 01/19/17 17:35 Ur Leukocyte Esterase SMALL (NEGATIVE) H 01/19/17 17:35 Urine RBC 2-5 /hpf (0-5) 01/19/17 17:35 Urine WBC 50-100 /hpf (0-5) H 01/19/17 17:35 Ur Epithelial Cells FEW /lpf (FEW) 01/19/17 17:35 Amorphous Sediment MODERATE URATES (NONE SEEN) 01/19/17 17:35 Urine Bacteria MANY /hpf (NONE SEEN) 01/19/17 17:35 Thyroid Peroxidase Ab SEE REF. LAB REPORT 01/23/17 06:35 - Physical Exam Vitals and I&O: Vital Signs Temp 97.6 F 01/25/17 15:48 Pulse 71 01/25/17 17:07 Resp 18 01/25/17 15:48 BP 140/62 01/25/17 17:07 Pulse Ox 99 01/25/17 15:48 Intake & Output 01/24/17 01/25/17 01/25/17 18:59 06:59 18:59 Intake Total 3.75 Balance 3.75 Intake: Intake, IV Amount 3.75 D5-0.45NS 1,000 ml @ 75 3.75 mls/hr IV .[id number] [facility] Rx #:[id number] Other: # Voids 1 Active Medications: Current Medications Albuterol/Ipratropium (Duoneb Neb) 3 ml HHN [id number] [facility] Stop: 03/21/17 10:59 Last Admin: 01/25/17 15:24 Dose: 3 ml Carvedilol (Coreg) 12.5 mg PO BID [facility] Stop: 03/21/17 08:59 Last Admin: 01/25/17 17:07 Dose: 12.5 mg Ergocalciferol (Vitamin D) 50,000 iu PO QSUN [facility] Stop: 03/23/17 08:59 Last Admin: 01/22/17 09:46 Dose: 50,000 iu Ferrous Sulfate (Iron) 325 mg PO TID [facility] Stop: 03/22/17 14:59 Last Admin: 01/25/17 14:39 Dose: 325 mg Heparin Sodium (Porcine) (Heparin) 5,000 units SUBQ Q12H [facility] Stop: 03/21/17 20:59 Last Admin: 01/25/17 09:47 Dose: 5,000 units Dextrose/Sodium Chloride (D5-0.45ns) 1,000 mls @ 75 mls/hr IV .[id number] [facility] Stop: 03/20/17 22:53 Last Admin: 01/24/17 17:02 Dose: 75 mls/hr Ceftriaxone Sodium 1 gm/ (Sodium Chloride) 50 mls @ 100 mls/hr IV Q24HR [facility] Stop: 03/20/17 22:53 Last Admin: 01/24/17 22:00 Dose: 100 mls/hr Azithromycin 500 mg/ Sodium (Chloride) 250 mls @ 250 mls/hr IV Q24HR@1000 [facility] Stop: 03/26/17 10:59 Last Admin: 01/25/17 12:01 Dose: 250 mls/hr Levothyroxine Sodium (Synthroid) 0.15 mg PO QDAC [facility] Stop: 03/24/17 07:29 Last Admin: 01/25/17 06:33 Dose: 0.15 mg Megestrol Acetate (Megace) 400 mg PO DAILY [facility] PRN Reason: Protocol Stop: 03/21/17 08:59 Last Admin: 01/25/17 09:43 Dose: 400 mg Memantine (Namenda) 5 mg PO DAILY [facility] Stop: 03/21/17 08:59 Last Admin: 01/25/17 09:46 Dose: 5 mg Mirtazapine (Remeron) 30 mg PO HS [facility] PRN Reason: Protocol Stop: 03/20/17 22:53 Last Admin: 01/24/17 20:25 Dose: 30 mg Miscellaneous (Vte Chemical Prophylaxis Screen/ Admission) 1 ea [facility] PRN PRN PRN Reason: PROTOCOL Stop: 03/21/17 15:23 Mupirocin (Bactroban Oint) 1 appl TP BID [facility] Stop: 03/22/17 08:59 Last Admin: 01/25/17 17:07 Dose: 1 appl Oxybutynin Chloride (Ditropan) 5 mg PO TID [facility] Stop: 03/21/17 08:59 Last Admin: 01/25/17 14:39 Dose: 5 mg Simvastatin (Zocor) 40 mg PO QPM [facility] PRN Reason: Protocol Stop: 03/21/17 16:59 Last Admin: 01/25/17 17:07 Dose: 40 mg Nutritional Asmnt/Malnutr-PDOC - Dietary Evaluation Malnutrition Findings (Please click <Entered> for more info): Nutritional Asmnt/Malnutrition Start: 01/20/17 15: 18 Text: Status: Complete Freq: Document 01/20/17 15:18 GSUN (Rec: 01/20/17 15:38 [email or web address]) Nutritional Asmnt/Malnutrition Patient General Information Nutritional Screening High Risk Screening Pertinent Medical Hx/Surgical Hx Advanced dementia, hyperthyroidism, CAD status post CABG with 4 bypass, hx osteoarthritis Subjective Information 76 year old female from home. RD consult for FTT, calorie count, malnourished. Per H&P, noticeable anorexia with very minial PO intake 6 days prior to adm, no hx of dysphagia/ choking/coughing spells. Megace ordered, swallow eval pending. Visited pt during meal time, pt is nonverbal, sticks tongue out, spoke to family at bedside, RD observed pt finished 50% meal. Family stated recently noted pt began to hold food in mouth for 20mins and spitting it out, family denied swallowing/ chewing difficulties. Family reported pt has recently lost weight, however could not recall UBW or how much weight. Unable to obtain CBW due to bedscale not properly calibrated. Current Diet Order/ Nutrition Support Low sodium, pureed Pertinent Medications D5, Vitamin D, Megace Pertinent Labs Reviewed. Nutritional Hx/Data Height 12.7 cm Height (Calculated Centimeters) 12.7 Current Weight (lbs) 40.823 kg Weight (Calculated Kilograms) 40.8 Weight (Calculated Grams) 75982.3 [place] Body Weight 100lb Recent Weight Change Yes Weight Status Underweight GI Symptoms Cultural/Ethnic/Taoist Belief Unknown. Usual diet at home Unknown. Skin Integrity/Comment: Brendon 12. Estimated Nutritional Goals Calories/Kcals/Kg IBW 100lb/45.5kg Kcals Calculated 1365-1593kcal (30-35kcal/kg) Protein g/kg: IBW Protein Calculated 46-55g (1-1.2g/kg) Fluid: ml 1365-1593ml (1ml/kcal) Nutritional Problem 1. Problem Problem Underweight related to Etiology likely inadequate PO intake aeb Signs/Symptoms: BMI <18.5, family report weight loss and suboptimal PO intake for 1 wk Intervention/Recommendation Comments 1. Calorie Count began 01/20 breakfast and will end 01/[address] explained to family and informed RN. 2. Continue with pureed low sodium diet. 3. Follow up with shorty morrow . 4. Physical assessment if able . Expected Outcomes/Goals Expected Outcomes/Goals 1. PO intake to meet 100% of estimated nutritional needs.
--- NOTE | 2017-01-25 20:06 | General Progress Note ---
Subjective - Review of Systems Service Date: 01/25/17 Events since last encounter: talked to son via phone informed of the large thyroid mass, on left causing mass effect against the trachea son claims patient has no problem swalloing and breathing does not want any surgery done Objective - Results Result Diagrams: 01/25/17 06:45 01/25/17 06:45 Recent Labs: Laboratory Last Values WBC 8.1 Th/cmm (4.8-10.8) 01/25/17 06:45 RBC 3.18 Mil/cmm (3.80-5.20) L 01/25/17 06:45 Hgb 9.8 gm/dL (11.7-16.1) L 01/25/17 06:45 Hct 28.6 % (35.0-45.0) L 01/25/17 06:45 MCV 90.0 fl (81-100) 01/25/17 06:45 MCH 30.7 pg (27.0-31.0) 01/25/17 06:45 MCHC Differential 34.1 pg (28.0-36.0) 01/25/17 06:45 RDW 13.1 % (11.5-20.0) 01/25/17 06:45 Plt Count 214 Th/cmm (150-400) 01/25/17 06:45 MPV 8.1 fl 01/25/17 06:45 Neutrophils % 51.4 % (40.0-80.0) 01/25/17 06:45 Band Neutrophils % 1 % (0-10) 01/20/17 05:45 Lymphocytes % 32.0 % (20.0-50.0) 01/25/17 06:45 Monocytes % 12.2 % (2.0-10.0) H 01/25/17 06:45 Eosinophils % 3.6 % (0.0-5.0) 01/25/17 06:45 Basophils % 0.8 % (0.0-2.0) 01/25/17 06:45 Neutrophils (Manual) 32 % (40-80) L 01/21/17 05:30 Lymphocytes 52 % (20-50) H 01/21/17 05:30 Monocytes 10 % (2-10) 01/21/17 05:30 Eosinophils 6 % (0-5) H 01/21/17 05:30 Basophils 1 % (0-3) 01/20/17 05:45 Platelet Estimate ADEQUATE (NORMAL) 01/21/17 05:30 Platelet Morphology NORMAL (NORMAL) 01/21/17 05:30 RBC Morph Micro Appear NORMAL (NORMAL) 01/21/17 05:30 PT 11.3 SECONDS (9.5-11.5) 01/24/17 07:45 INR 1.09 (0.5-1.4) 01/24/17 07:45 PTT (Actin FS) 31.6 SECONDS (26.0-38.0) 01/24/17 07:45 Sodium 138 mEq/L (136-145) 01/25/17 06:45 Potassium 3.9 mEq/L (3.5-5.1) 01/25/17 06:45 Chloride 110 mEq/L (98-107) H 01/25/17 06:45 Carbon Dioxide 24.3 mEq/L (21.0-31.0) 01/25/17 06:45 Anion Gap 7.6 (7.0-16.0) 01/25/17 06:45 BUN 15 mg/dL (7-25) 01/25/17 06:45 Creatinine 0.8 mg/dL (0.6-1.2) 01/25/17 06:45 Est GFR ( Amer) TNP 01/25/17 06:45 Est GFR (Non-Af Amer) TNP 01/25/17 06:45 BUN/Creatinine Ratio 18.8 01/25/17 06:45 Glucose 87 mg/dL (70-105) 01/25/17 06:45 Calcium 9.7 mg/dL (8.6-10.3) 01/25/17 06:45 Magnesium 1.7 mg/dL (1.9-2.7) L 01/25/17 06:45 Iron 31 ug/dL (27-139) 01/20/17 10:30 TIBC 166 ug/dL (250-450) L 01/20/17 10:30 Iron Saturation 19 % (15-55) 01/20/17 10:30 Unsaturated IBC 135 ug/dL (118-369) 01/20/17 10:30 Ferritin 473 ng/mL (15-150) H 01/20/17 10:30 Total Bilirubin 0.3 mg/dL (0.3-1.0) 01/20/17 05:45 Direct Bilirubin 0.09 mg/dL (0.0-0.2) 01/19/17 17:00 AST 22 U/L (13-39) 01/20/17 05:45 ALT 16 U/L (7-52) 01/20/17 05:45 Alkaline Phosphatase 40 U/L (34-104) 01/20/17 05:45 Total Protein 6.5 gm/dL (6.0-8.3) 01/20/17 05:45 Albumin 3.3 gm/dL (3.7-5.3) L 01/20/17 05:45 Globulin 3.2 gm/dL 01/20/17 05:45 Albumin/Globulin Ratio 1.0 (1.0-1.8) 01/20/17 05:45 Prealbumin 15 mg/dL (9-32) 01/20/17 05:45 Triglycerides 94 mg/dL (<150) 01/20/17 05:45 Cholesterol 144 mg/dL (<200) 01/20/17 05:45 LDL Cholesterol Direct 88 mg/dL (75-193) 01/20/17 05:45 HDL Cholesterol 36 mg/dL (23-92) 01/20/17 05:45 Lipase 13 U/L (11-82) 01/19/17 17:00 Carcinoembryonic Ag 5.1 ng/mL (0.0-4.7) H 01/20/17 10:30 Free T4 0.82 ng/dL (0.82-1.77) 01/23/17 06:35 Thyroxine (T4) 2.64 ug/dl (6.09-12.23) L 01/20/17 05:45 Free T3 4.4 pg/mL (2.0-4.4) 01/23/17 06:35 TSH 7.35 uIU/ml (0.34-5.60) H 01/23/17 06:35 Urine Source RANDOM 01/19/17 17:35 Urine Color YELLOW 01/19/17 17:35 Urine Clarity HAZY (CLEAR) 01/19/17 17:35 Urine pH 5.5 01/19/17 17:35 Ur Specific [place] 1.020 (1.005-1.030) 01/19/17 17:35 Urine Protein 100 mg/dL (NEGATIVE) H 01/19/17 17:35 Urine Glucose (UA) NEGATIVE mg/dL (NEGATIVE) 01/19/17 17:35 Urine Ketones NEGATIVE mg/dL (NEGATIVE) 01/19/17 17:35 Urine Blood MODERATE (NEGATIVE) H 01/19/17 17:35 Urine Nitrate NEGATIVE (NEGATIVE) 01/19/17 17:35 Urine Bilirubin NEGATIVE (NEGATIVE) 01/19/17 17:35 Urine Urobilinogen 0.2 E.U./dL (0.2 - 1.0) 01/19/17 17:35 Ur Leukocyte Esterase SMALL (NEGATIVE) H 01/19/17 17:35 Urine RBC 2-5 /hpf (0-5) 01/19/17 17:35 Urine WBC 50-100 /hpf (0-5) H 01/19/17 17:35 Ur Epithelial Cells FEW /lpf (FEW) 01/19/17 17:35 Amorphous Sediment MODERATE URATES (NONE SEEN) 01/19/17 17:35 Urine Bacteria MANY /hpf (NONE SEEN) 01/19/17 17:35 Thyroid Peroxidase Ab SEE REF. LAB REPORT 01/23/17 06:35 - Physical Exam Vitals and I&O: Vital Signs Temp 97.6 F 01/25/17 15:48 Pulse 71 01/25/17 17:07 Resp 18 01/25/17 15:48 BP 140/62 01/25/17 17:07 Pulse Ox 99 01/25/17 15:48 Intake & Output 01/25/17 01/25/17 01/26/17 06:59 18:59 06:59 Intake Total 300 250 Balance 300 250 Intake: Intake, IV Amount 250 Azithromycin 500 mg In 250 Sodium Chloride 0.9% 250 ml @ 250 mls/hr IV Q24HR@ 1000 [facility] Rx#:[id number] Oral 300 Other: # Voids 1 4 Active Medications: Current Medications Albuterol/Ipratropium (Duoneb Neb) 3 ml HHN [id number] [facility] Stop: 03/21/17 10:59 Last Admin: 01/25/17 18:56 Dose: 3 ml Bisacodyl (Dulcolax 5 Mg Ec Tab) 5 mg PO HS [facility] Stop: 03/26/17 20:59 Carvedilol (Coreg) 12.5 mg PO BID [facility] Stop: 03/21/17 08:59 Last Admin: 01/25/17 17:07 Dose: 12.5 mg Ergocalciferol (Vitamin D) 50,000 iu PO QSUN [facility] Stop: 03/23/17 08:59 Last Admin: 01/22/17 09:46 Dose: 50,000 iu Ferrous Sulfate (Iron) 325 mg PO TID [facility] Stop: 03/22/17 14:59 Last Admin: 01/25/17 14:39 Dose: 325 mg Heparin Sodium (Porcine) (Heparin) 5,000 units SUBQ Q12H [facility] Stop: 03/21/17 20:59 Last Admin: 01/25/17 09:47 Dose: 5,000 units Dextrose/Sodium Chloride (D5-0.45ns) 1,000 mls @ 75 mls/hr IV .[id number] [facility] Stop: 03/20/17 22:53 Last Admin: 01/24/17 17:02 Dose: 75 mls/hr Ceftriaxone Sodium 1 gm/ (Sodium Chloride) 50 mls @ 100 mls/hr IV Q24HR [facility] Stop: 03/20/17 22:53 Last Admin: 01/24/17 22:00 Dose: 100 mls/hr Azithromycin 500 mg/ Sodium (Chloride) 250 mls @ 250 mls/hr IV Q24HR@1000 [facility] Stop: 03/26/17 10:59 Last Infusion: 01/25/17 19:14 Dose: Infused Lactulose (Cephulac) 10 gm PO Q12H PRN PRN Reason: Constipation Stop: 03/26/17 19:55 Levothyroxine Sodium (Synthroid) 0.15 mg PO QDAC [facility] Stop: 03/24/17 07:29 Last Admin: 01/25/17 06:33 Dose: 0.15 mg Megestrol Acetate (Megace) 400 mg PO DAILY [facility] PRN Reason: Protocol Stop: 03/21/17 08:59 Last Admin: 01/25/17 09:43 Dose: 400 mg Memantine (Namenda) 5 mg PO DAILY [facility] Stop: 03/21/17 08:59 Last Admin: 01/25/17 09:46 Dose: 5 mg Mirtazapine (Remeron) 30 mg PO HS [facility] PRN Reason: Protocol Stop: 03/20/17 22:53 Last Admin: 01/24/17 20:25 Dose: 30 mg Miscellaneous (Vte Chemical Prophylaxis Screen/ Admission) 1 ea [facility] PRN PRN PRN Reason: PROTOCOL Stop: 03/21/17 15:23 Mupirocin (Bactroban Oint) 1 appl TP BID [facility] Stop: 03/22/17 08:59 Last Admin: 01/25/17 17:07 Dose: 1 appl Oxybutynin Chloride (Ditropan) 5 mg PO TID [facility] Stop: 03/21/17 08:59 Last Admin: 01/25/17 14:39 Dose: 5 mg Simvastatin (Zocor) 40 mg PO QPM [facility] PRN Reason: Protocol Stop: 03/21/17 16:59 Last Admin: 01/25/17 17:07 Dose: 40 mg Nutritional Asmnt/Malnutr-PDOC - Dietary Evaluation Malnutrition Findings (Please click <Entered> for more info): Nutritional Asmnt/Malnutrition Start: 01/20/17 15: 18 Text: Status: Complete Freq: Document 01/20/17 15:18 GSUN (Rec: 01/20/17 15:38 [email or web address] [email or web address]) Nutritional Asmnt/Malnutrition Patient General Information Nutritional Screening High Risk Screening Pertinent Medical Hx/Surgical Hx Advanced dementia, hyperthyroidism, CAD status post CABG with 4 bypass, hx osteoarthritis Subjective Information 76 year old female from home. RD consult for FTT, calorie count, malnourished. Per H&P, noticeable anorexia with very minial PO intake 6 days prior to adm, no hx of dysphagia/ choking/coughing spells. Megace ordered, swallow eval pending. Visited pt during meal time, pt is nonverbal, sticks tongue out, spoke to family at bedside, RD observed pt finished 50% meal. Family stated recently noted pt began to hold food in mouth for 20mins and spitting it out, family denied swallowing/ chewing difficulties. Family reported pt has recently lost weight, however could not recall UBW or how much weight. Unable to obtain CBW due to bedscale not properly calibrated. Current Diet Order/ Nutrition Support Low sodium, pureed Pertinent Medications D5, Vitamin D, Megace Pertinent Labs Reviewed. Nutritional Hx/Data Height 12.7 cm Height (Calculated Centimeters) 12.7 Current Weight (lbs) 40.823 kg Weight (Calculated Kilograms) 40.8 Weight (Calculated Grams) 39882.3 [place] Body Weight 100lb Recent Weight Change Yes Weight Status Underweight GI Symptoms Cultural/Ethnic/Nondenominational Belief Unknown. Usual diet at home Unknown. Skin Integrity/Comment: Brendon 12. Estimated Nutritional Goals Calories/Kcals/Kg IBW 100lb/45.5kg Kcals Calculated 1365-1593kcal (30-35kcal/kg) Protein g/kg: IBW Protein Calculated 46-55g (1-1.2g/kg) Fluid: ml 1365-1593ml (1ml/kcal) Nutritional Problem 1. Problem Problem Underweight related to Etiology likely inadequate PO intake aeb Signs/Symptoms: BMI <18.5, family report weight loss and suboptimal PO intake for 1 wk Intervention/Recommendation Comments 1. Calorie Count began 01/20 breakfast and will end 01/[address] explained to family and informed RN. 2. Continue with pureed low sodium diet. 3. Follow up with swallow eval . 4. Physical assessment if able . Expected Outcomes/Goals Expected Outcomes/Goals 1. PO intake to meet 100% of estimated nutritional needs.
[2017-01-25] MEDS: Lactulose 10 Gm/15 mL 30mL UDC PO PRN (20:30)
--- NOTE | 2017-01-25 22:32 | Consultation ---
SURGICAL CONSULTATION REFERRING PHYSICIAN: Ben Seymour M.D. REASON FOR CONSULTATION: Thyroid mass. Thank you for referring this patient to me. HISTORY OF PRESENT ILLNESS: This is a 76-year-old female admitted because of anorexia and failure to thrive. PAST MEDICAL HISTORY: The patient's history includes hyperthyroidism with elevated TSH, urinary tract infection, advanced dementia, coronary artery disease status post CABG, osteoarthritis and right shoulder pain. LABORATORY DATA: On this admission, the laboratory studies show, CBC on this date of consult showing hemoglobin low at 9.8, the monocyte is 12.2. Chemistry is essentially normal. TSH is 7.35. The patient had chest x-ray and CT of the chest showing enlargement of the thyroid gland and on ultrasound, this is reinforced. Mostly, this finding is confirmed. The enlargement is mostly on the left side with marked narrowing of the mid trachea. PHYSICAL EXAMINATION: The patient is awake, but unable to give any information. There is a large neck mass worse on the left side with large neck veins that are dilated. RECOMMENDATIONS: Message was left with the son regarding these findings and discussion will be made on whether any surgical intervention will be necessary depending on the tracheal deviation and constriction. Unfortunately, this might also require tracheal reconstruction or tracheostomy that may be on a permanent basis. Message was left for the son and full discussion will be made regarding any type of surgical intervention and outcomes that might prevail. [facility]# [id number]
[2017-01-25] MEDS: cefTRIAXone 1 GM in Sodium Chloride 0.9% 50 ML IV SCH (22:58)
[2017-01-26] MEDS: D5-0.45NS 1,000 ML IV SCH (03:46)
[2017-01-26] MEDS: Albuterol/Ipratropium Neb 3 ML AERS HHN SCH ×4 (07:04→19:03)
[2017-01-26] MEDS: Levothyroxine 0.15 Mg Tab PO SCH (07:07)
[2017-01-26 07:50] LABS: HEMATOCRIT 29.1 % (35.0-45.0); MEAN CELL VOLUME 91.1 fl (81-100); MEAN CORPUSCULAR HEMOGLOBIN 28.3 pg (27.0-31.0); MEAN PLATELET VOLUME 7.8 fl; PLATELET COUNT 233 Th/cmm (150-400); RED BLOOD COUNT 3.19 Mil/cmm (3.80-5.20); RED CELL DISTRIBUTION WIDTH 13.3 % (11.5-20.0); WHITE BLOOD COUNT 6.7 Th/cmm (4.8-10.8)
[2017-01-26 08:01] LABS: ANION GAP 7.8 (7.0-16.0); BUN - UREA NITROGEN 12 mg/dL (7-25); BUN/CREATININE RATIO 17.1; CALCIUM SERUM 8.9 mg/dL (8.6-10.3); CARBON DIOXIDE 23.8 mEq/L (21.0-31.0); CHLORIDE 110 mEq/L (98-107); CREATININE - SERUM 0.7 mg/dL (0.6-1.2); GLUCOSE 104 mg/dL (70-105); MAGNESIUM 2.3 mg/dL (1.9-2.7); POTASSIUM SERUM 3.6 mEq/L (3.5-5.1); SODIUM SERUM 138 mEq/L (136-145)
[2017-01-26 08:34] LABS: ANISOCYTOSIS 1+; BASOPHIL 1 % (0-3); EOSINOPHIL 1 % (0-5); NEUTROPHILS 31 % (40-80); PLATELET ESTIMATE ADEQUATE (NORMAL); PLATELET MORPHOLOGY NORMAL (NORMAL); TOTAL CELLS COUNTED 100
[2017-01-26] MEDS: Ferrous Sulfate 325 MG TAB PO SCH ×2 (08:57→13:23)
--- NOTE | 2017-01-26 09:12 | General Progress Note ---
Subjective - Review of Systems Events since last encounter: 01/26/17 discussed with Lion, son wants no surgery at this time Objective - Results Result Diagrams: 01/26/17 07:35 01/26/17 07:35 Recent Labs: Laboratory Last Values WBC 6.7 Th/cmm (4.8-10.8) 01/26/17 07:35 RBC 3.19 Mil/cmm (3.80-5.20) L 01/26/17 07:35 Hgb 9.0 gm/dL (11.7-16.1) L 01/26/17 07:35 Hct 29.1 % (35.0-45.0) L 01/26/17 07:35 MCV 91.1 fl (81-100) 01/26/17 07:35 MCH 28.3 pg (27.0-31.0) 01/26/17 07:35 MCHC Differential 31.0 pg (28.0-36.0) 01/26/17 07:35 RDW 13.3 % (11.5-20.0) 01/26/17 07:35 Plt Count 233 Th/cmm (150-400) 01/26/17 07:35 MPV 7.8 fl 01/26/17 07:35 Neutrophils % 51.4 % (40.0-80.0) 01/25/17 06:45 Band Neutrophils % 1 % (0-10) 01/20/17 05:45 Lymphocytes % 32.0 % (20.0-50.0) 01/25/17 06:45 Monocytes % 12.2 % (2.0-10.0) H 01/25/17 06:45 Eosinophils % 3.6 % (0.0-5.0) 01/25/17 06:45 Basophils % 0.8 % (0.0-2.0) 01/25/17 06:45 Neutrophils (Manual) 31 % (40-80) L 01/26/17 07:35 Lymphocytes 47 % (20-50) 01/26/17 07:35 Monocytes 18 % (2-10) H 01/26/17 07:35 Eosinophils 1 % (0-5) 01/26/17 07:35 Basophils 1 % (0-3) 01/26/17 07:35 Atypical Lymphocytes 2 % 01/26/17 07:35 Platelet Estimate ADEQUATE (NORMAL) 01/26/17 07:35 Platelet Morphology NORMAL (NORMAL) 01/26/17 07:35 Anisocytosis 1+ 01/26/17 07:35 RBC Morph Micro Appear ABNORMAL (NORMAL) 01/26/17 07:35 PT 11.3 SECONDS (9.5-11.5) 01/24/17 07:45 INR 1.09 (0.5-1.4) 01/24/17 07:45 PTT (Actin FS) 31.6 SECONDS (26.0-38.0) 01/24/17 07:45 Sodium 138 mEq/L (136-145) 01/26/17 07:35 Potassium 3.6 mEq/L (3.5-5.1) 01/26/17 07:35 Chloride 110 mEq/L (98-107) H 01/26/17 07:35 Carbon Dioxide 23.8 mEq/L (21.0-31.0) 01/26/17 07:35 Anion Gap 7.8 (7.0-16.0) 01/26/17 07:35 BUN 12 mg/dL (7-25) 01/26/17 07:35 Creatinine 0.7 mg/dL (0.6-1.2) 01/26/17 07:35 Est GFR ( Amer) TNP 01/26/17 07:35 Est GFR (Non-Af Amer) TNP 01/26/17 07:35 BUN/Creatinine Ratio 17.1 01/26/17 07:35 Glucose 104 mg/dL (70-105) 01/26/17 07:35 Calcium 8.9 mg/dL (8.6-10.3) 01/26/17 07:35 Magnesium 2.3 mg/dL (1.9-2.7) 01/26/17 07:35 Iron 31 ug/dL (27-139) 01/20/17 10:30 TIBC 166 ug/dL (250-450) L 01/20/17 10:30 Iron Saturation 19 % (15-55) 01/20/17 10:30 Unsaturated IBC 135 ug/dL (118-369) 01/20/17 10:30 Ferritin 473 ng/mL (15-150) H 01/20/17 10:30 Total Bilirubin 0.3 mg/dL (0.3-1.0) 01/20/17 05:45 Direct Bilirubin 0.09 mg/dL (0.0-0.2) 01/19/17 17:00 AST 22 U/L (13-39) 01/20/17 05:45 ALT 16 U/L (7-52) 01/20/17 05:45 Alkaline Phosphatase 40 U/L (34-104) 01/20/17 05:45 Total Protein 6.5 gm/dL (6.0-8.3) 01/20/17 05:45 Albumin 3.3 gm/dL (3.7-5.3) L 01/20/17 05:45 Globulin 3.2 gm/dL 01/20/17 05:45 Albumin/Globulin Ratio 1.0 (1.0-1.8) 01/20/17 05:45 Prealbumin 15 mg/dL (9-32) 01/20/17 05:45 Triglycerides 94 mg/dL (<150) 01/20/17 05:45 Cholesterol 144 mg/dL (<200) 01/20/17 05:45 LDL Cholesterol Direct 88 mg/dL (75-193) 01/20/17 05:45 HDL Cholesterol 36 mg/dL (23-92) 01/20/17 05:45 Lipase 13 U/L (11-82) 01/19/17 17:00 Carcinoembryonic Ag 5.1 ng/mL (0.0-4.7) H 01/20/17 10:30 Free T4 0.82 ng/dL (0.82-1.77) 01/23/17 06:35 Thyroxine (T4) 2.64 ug/dl (6.09-12.23) L 01/20/17 05:45 Free T3 4.4 pg/mL (2.0-4.4) 01/23/17 06:35 TSH 7.35 uIU/ml (0.34-5.60) H 01/23/17 06:35 Urine Source RANDOM 01/19/17 17:35 Urine Color YELLOW 01/19/17 17:35 Urine Clarity HAZY (CLEAR) 01/19/17 17:35 Urine pH 5.5 01/19/17 17:35 Ur Specific [place] 1.020 (1.005-1.030) 01/19/17 17:35 Urine Protein 100 mg/dL (NEGATIVE) H 01/19/17 17:35 Urine Glucose (UA) NEGATIVE mg/dL (NEGATIVE) 01/19/17 17:35 Urine Ketones NEGATIVE mg/dL (NEGATIVE) 01/19/17 17:35 Urine Blood MODERATE (NEGATIVE) H 01/19/17 17:35 Urine Nitrate NEGATIVE (NEGATIVE) 01/19/17 17:35 Urine Bilirubin NEGATIVE (NEGATIVE) 01/19/17 17:35 Urine Urobilinogen 0.2 E.U./dL (0.2 - 1.0) 01/19/17 17:35 Ur Leukocyte Esterase SMALL (NEGATIVE) H 01/19/17 17:35 Urine RBC 2-5 /hpf (0-5) 01/19/17 17:35 Urine WBC 50-100 /hpf (0-5) H 01/19/17 17:35 Ur Epithelial Cells FEW /lpf (FEW) 01/19/17 17:35 Amorphous Sediment MODERATE URATES (NONE SEEN) 01/19/17 17:35 Urine Bacteria MANY /hpf (NONE SEEN) 01/19/17 17:35 Thyroid Peroxidase Ab SEE REF. LAB REPORT 01/23/17 06:35 - Physical Exam Vitals and I&O: Vital Signs Temp 97.7 F 01/26/17 04:00 Pulse 62 01/26/17 08:57 Resp 20 01/26/17 07:04 BP 144/60 01/26/17 08:57 Pulse Ox 97 01/26/17 07:04 Intake & Output 01/25/17 01/26/17 01/26/17 18:59 06:59 18:59 Intake Total 300 450 Balance 300 450 Weight (lbs) 40.823 kg Intake: Intake, IV Amount 250 Azithromycin 500 mg In 250 Sodium Chloride 0.9% 250 ml @ 250 mls/hr IV Q24HR@ 1000 [facility] Rx#:[id number] Oral 300 200 Other: # Voids 4 3 Active Medications: Current Medications Albuterol/Ipratropium (Duoneb Neb) 3 ml HHN [id number] [facility] Stop: 03/21/17 10:59 Last Admin: 01/26/17 07:04 Dose: 3 ml Bisacodyl (Dulcolax 5 Mg Ec Tab) 5 mg PO HS [facility] Stop: 03/26/17 20:59 Last Admin: 03/22/17 20:28 Dose: 5 mg Carvedilol (Coreg) 12.5 mg PO BID [facility] Stop: 03/21/17 08:59 Last Admin: 01/26/17 08:57 Dose: 12.5 mg Ergocalciferol (Vitamin D) 50,000 iu PO QSUN [facility] Stop: 03/23/17 08:59 Last Admin: 01/22/17 09:46 Dose: 50,000 iu Ferrous Sulfate (Iron) 325 mg PO TID [facility] Stop: 03/22/17 14:59 Last Admin: 01/26/17 08:57 Dose: 325 mg Heparin Sodium (Porcine) (Heparin) 5,000 units SUBQ Q12H [facility] Stop: 03/21/17 20:59 Last Admin: 01/26/17 08:57 Dose: 5,000 units Dextrose/Sodium Chloride (D5-0.45ns) 1,000 mls @ 75 mls/hr IV .[id number] [facility] Stop: 03/20/17 22:53 Last Admin: 01/26/17 03:46 Dose: 75 mls/hr Ceftriaxone Sodium 1 gm/ (Sodium Chloride) 50 mls @ 100 mls/hr IV Q24HR [facility] Stop: 03/20/17 22:53 Last Admin: 01/25/17 22:58 Dose: 100 mls/hr Azithromycin 500 mg/ Sodium (Chloride) 250 mls @ 250 mls/hr IV Q24HR@1000 [facility] Stop: 03/26/17 10:59 Last Infusion: 01/25/17 19:14 Dose: Infused Lactulose (Cephulac) 10 gm PO Q12H PRN PRN Reason: Constipation Stop: 03/26/17 19:55 Last Admin: 01/25/17 20:30 Dose: 10 gm Levothyroxine Sodium (Synthroid) 0.15 mg PO QDAC [facility] Stop: 03/24/17 07:29 Last Admin: 01/26/17 07:07 Dose: 0.15 mg Megestrol Acetate (Megace) 400 mg PO DAILY [facility] PRN Reason: Protocol Stop: 03/21/17 08:59 Last Admin: 01/26/17 08:57 Dose: 400 mg Memantine (Namenda) 5 mg PO DAILY [facility] Stop: 03/21/17 08:59 Last Admin: 01/26/17 08:57 Dose: 5 mg Mirtazapine (Remeron) 30 mg PO HS [facility] PRN Reason: Protocol Stop: 03/20/17 22:53 Last Admin: 01/25/17 20:28 Dose: 30 mg Miscellaneous (Vte Chemical Prophylaxis Screen/ Admission) 1 ea [facility] PRN PRN PRN Reason: PROTOCOL Stop: 03/21/17 15:23 Mupirocin (Bactroban Oint) 1 appl TP BID [facility] Stop: 03/22/17 08:59 Last Admin: 01/26/17 08:58 Dose: 1 appl Oxybutynin Chloride (Ditropan) 5 mg PO TID [facility] Stop: 03/21/17 08:59 Last Admin: 01/26/17 08:58 Dose: 5 mg Simvastatin (Zocor) 40 mg PO QPM [facility] PRN Reason: Protocol Stop: 03/21/17 16:59 Last Admin: 01/25/17 17:07 Dose: 40 mg Nutritional Asmnt/Malnutr-PDOC - Dietary Evaluation Malnutrition Findings (Please click <Entered> for more info): Nutritional Asmnt/Malnutrition Start: 01/20/17 15: 18 Text: Status: Complete Freq: Document 01/20/17 15:18 GSUN (Rec: 01/20/17 15:38 GSUN [id number]) Nutritional Asmnt/Malnutrition Patient General Information Nutritional Screening High Risk Screening Pertinent Medical Hx/Surgical Hx Advanced dementia, hyperthyroidism, CAD status post CABG with 4 bypass, hx osteoarthritis Subjective Information 76 year old female from home. RD consult for FTT, calorie count, malnourished. Per H&P, noticeable anorexia with very minial PO intake 6 days prior to adm, no hx of dysphagia/ choking/coughing spells. Megace ordered, swallow eval pending. Visited pt during meal time, pt is nonverbal, sticks tongue out, spoke to family at bedside, RD observed pt finished 50% meal. Family stated recently noted pt began to hold food in mouth for 20mins and spitting it out, family denied swallowing/ chewing difficulties. Family reported pt has recently lost weight, however could not recall UBW or how much weight. Unable to obtain CBW due to bedscale not properly calibrated. Current Diet Order/ Nutrition Support Low sodium, pureed Pertinent Medications D5, Vitamin D, Megace Pertinent Labs Reviewed. Nutritional Hx/Data Height 12.7 cm Height (Calculated Centimeters) 12.7 Current Weight (lbs) 40.823 kg Weight (Calculated Kilograms) 40.8 Weight (Calculated Grams) 21301.3 [place] Body Weight 100lb Recent Weight Change Yes Weight Status Underweight GI Symptoms Cultural/Ethnic/Sikh Belief Unknown. Usual diet at home Unknown. Skin Integrity/Comment: Brendon 12. Estimated Nutritional Goals Calories/Kcals/Kg IBW 100lb/45.5kg Kcals Calculated 1365-1593kcal (30-35kcal/kg) Protein g/kg: IBW Protein Calculated 46-55g (1-1.2g/kg) Fluid: ml 1365-1593ml (1ml/kcal) Nutritional Problem 1. Problem Problem Underweight related to Etiology likely inadequate PO intake aeb Signs/Symptoms: BMI <18.5, family report weight loss and suboptimal PO intake for 1 wk Intervention/Recommendation Comments 1. Calorie Count began 01/20 breakfast and will end 01/[address] explained to family and informed RN. 2. Continue with pureed low sodium diet. 3. Follow up with swallow eval . 4. Physical assessment if able . Expected Outcomes/Goals Expected Outcomes/Goals 1. PO intake to meet 100% of estimated nutritional needs.
[2017-01-26] MEDS ORDERED: Levofloxacin 500mg/100mL 500 MG/100 ML BAG IV SCH (09:15)
[2017-01-26] MEDS: Lactulose 10 Gm/15 mL 30mL UDC PO PRN (10:38)
[2017-01-30 00:41] LABS: THYROGLOBULIN AB SEE REF. LAB REPORT
--- NOTE | 2017-01-30 17:46 | Discharge Summary ---
ADMITTING DIAGNOSES: 1. Failure to thrive/anorexia. 2. Urinary tract infection. 3. Dehydration. 4. Renal insufficiency. 5. History of hypothyroidism with an elevated TSH level. SECONDARY DIAGNOSES: Include: 1. History of dementia. 2. History of osteoarthritis. 3. History of coronary artery disease, status post CABG. DISCHARGE DIAGNOSES: 1. Failure to thrive/anorexia. 2. Urinary tract infection. 3. Dehydration. 4. Renal insufficiency. 5. History of hypothyroidism with an elevated TSH level. 6. Thyroid mass/goiter. CONSULTANTS: Dr. Ho, endocrine and Dr. Rebollar, General Surgery. MAJOR PROCEDURES: Thyroid ultrasound done on 01/23/2017 shows extreme enlargement of the left lobe of the thyroid gland with a markedly enlarged- heterogenous parenchymal appearance. There is an enlargement of the right lobe of the thyroid gland with multiple heterogenous solid nodules. The patient also underwent a thyroid-guided biopsy. The cytology reveals no evidence of atypia with no evidence of malignancy. MEDICATIONS ON TRANSFER: Please refer to the MAR. BRIEF HOSPITAL COURSE: A 76-year-old female who lives at home with family members and suffers from advanced dementia, hypothyroidism, CAD status post CABG with 4-vessel bypass about 10 years ago, history of osteoarthritis, former cigarette smoker, who about 6 days ago was noted to have decreased sensorium and noted to have anorexia. Per her son's history, the patient is mostly bedbound, but eats pretty well and at times is able to interact with family members. She was brought into the ER where pertinent findings include H and H of 10/30 and BUN of 29 and TSH of 19.7. Also, UA was consistent with a UTI. The patient was admitted to the tele topete and was placed on IV fluids and Rocephin 1 g q. 24. She was also given appetite stimulants, i.e., Remeron and Megace with improvement in her symptoms. Her medications were adjusted including her Synthroid and endocrine eval was asked for given her abnormal TFTs and her neck mass. She underwent the above-mentioned procedures without any difficulty and remained with her other medications as scheduled. PT eval was ordered as well. The patient's condition did improve somewhat, but she remained overall with poor p.o. intake. Given her comorbidities and clinical conditions, son was agreeable for the patient to be transferred to LT[facility]. CONDITION ON DISCHARGE: Stable. DISPOSITION: The patient was transferred to [facility] for further management and care. [facility]# [id number] F F THOMPSON HOSPITALEliseo
== END 2017-01-26 20:05 | disposition short-term general hospital (02) | DRG 689 ==
LOC: ER 16:53 → MSI 20:34
PROVIDERS: ADMIT Internal Medicine; ATTEND Internal Medicine
PROC: 0GBG3ZX Excision of Left Thyroid Gland Lobe, Percutaneous Approach, Diagnostic (ICD-10-PCS; principal; 2017-01-19)
PROC: 0GBH3ZX Excision of Right Thyroid Gland Lobe, Percutaneous Approach, Diagnostic (ICD-10-PCS; 2017-01-19)
DX: N39.0 Urinary tract infection, site not specified (principal); J18.9 Pneumonia, unspecified organism; E86.0 Dehydration; G30.9 Alzheimer's disease, unspecified; E83.42 Hypomagnesemia; R63.0 Anorexia; D64.9 Anemia, unspecified; F02.80 Dementia in other diseases classified elsewhere, unspecified severity, without behavioral disturbance, psychotic disturbance, mood disturbance, and anxiety; Z68.1 Body mass index [BMI] 19.9 or less, adult; R62.7 Adult failure to thrive; E03.9 Hypothyroidism, unspecified; I25.10 Atherosclerotic heart disease of native coronary artery without angina pectoris; M19.90 Unspecified osteoarthritis, unspecified site; R07.9 Chest pain, unspecified; B96.20 Unspecified Escherichia coli [E. coli] as the cause of diseases classified elsewhere; Z95.1 Presence of aortocoronary bypass graft; Z87.891 Personal history of nicotine dependence
CPT/HCPCS: 36415-UA; 71010-TC; 71250-TC; 76536-TC; 80048-TC; 80053-TC; 80061-TC; 80076-TC; 81001-TC; 82378-90; 82728-90; 83540-90; 83550-90; 83690-TC; 83735-TC; 84134-90; 84432-90; 84436-TC; 84439-90; 84443-TC; 84479-90; 85007-TC; 85025-TC; 85027-TC; 85610-TC; 85730-TC; 86235-90; 86376-90; 87086-90; 93005; 94760; J0456; J0696; J1644; J1956; J2001; J3475; J7030; X3401; Z7610

== ENCOUNTER 2017-02-17 20:27 | Emergency (ER) | payer MEDICARE, BC ==
--- NOTE | 2017-02-17 21:09 | ED Physician Chart ---
Chief Complaint/HPI - Patient Information Date Seen:: 02/17/17 Time Seen:: 20:34 Chief Complaint:: COUGH History of Present Illness:: THIS IS A 76 YO DEMENTED ANOREXIC FEMALE WITH SEVERE OSTEOARTHRITIS SENT TO ER BY DR. DYE BECAUSE OF HER INABILITY TO HANDLE HER SPITTING UP AND COUGHING. SHE ALSO HAS CORONARY DISEASE AND POST CABG. SHE WAS MOST RECENTLY IN THIS HOSPITAL ON 01-19-17. Allergies:: Allergies Allergy/AdvReac Type Severity Reaction Status Date / Time No Known Allergies Allergy Verified 02/17/17 20:51 Vitals:: Vital Signs - 8 hr 02/17/17 20:30 Temp 99.0 F HR 73 RR 18 BP 131/55 O2 Sat % 99 Historian:: Patient, Family Member (SON) Review:: Nurse's Note Reviewed, Old Chart Reviewed, Transfer documents Reviewed Review of Systems - Review of Systems General/Constitutional: No fever, No chills, No weight loss, No weakness, No diaphoresis, No edema, No loss of appetite Skin: No skin lesions, No rash, No bruising Head: No headache, No light-headedness Eyes: No loss of vision, No pain, No diplopia ENT: No earache, No nasal drainage, No sore throat, No tinnitus Neck: No neck pain, No swelling, No thyromegaly, No stiffness, No mass noted Cardio Vascular: No chest pain, No palpitations, No PND, No orthopnea, No edema Pulmonary: No SOB, Cough, No sputum, No wheezing GI: Nausea, No vomiting, No diarrhea, No pain, No melena, No hematochezia, No constipation, No hematemesis G/U: No dysuria, No frequency, No hematuria Musculoskeletal: Bone or joint pain, No back pain, No muscle pain Endocrine: No polyuria, No polydipsia Psychiatric: Prior psych history, No depression, No anxiety, No suicidal ideation Hematopoietic: No bruising, No lymphadenopathy Allergic/Immuno: No urticaria, No angioedema Neurological: No syncope, No focal symptoms, Weakness, No paresthesia, No headache, No seizure, No dizziness, Confusion, No vertigo Past Medical History - Past Medical History Obtainable: Yes Past Medical History: HTN, CAD, Thyroid disorder, Arthritis, Dementia Family History: None Social History: Non Smoker, No Alcohol, No Drug Use, Care Facility Surgical History: CABG Psychiatricy History: Dementia Medication: Reviewed Family Medical History - Family Member Mother History Unknown: Yes Physical Exam - Physical Examination General/Constitutional: Awake, Well-developed, well-nourished, Alert, No distress, GCS 15, Non-toxic appearing, Ambulatory Head: Atraumatic Eyes: Lids, conjuctiva normal, PERRL, EOMI Skin: Nl inspection, No rash, No skin lesions, No ecchymosis, Well hydrated, No lymphadenopathy ENMT: External ears, nose nl, Nasal exam nl, Lips, teeth, gums nl Neck: Nontender, Full ROM w/o pain, No JVD, No nuchal rigidity, No bruit, No mass, No stridor Respiratory: Nl effort/Exclusion, Clear to Auscultation, No Wheeze/Rhonchi/Rales Cardio Vascular: RRR, No murmur, gallop, rubs, NL S1 S2 GI: No tenderness/rebounding/guarding, No organomegaly, No hernia, Normal BS's, Nondistended, No mass/bruits, No McBurney tenderness : No CVA tenderness Extremities: No tenderness or effusion, Full ROM, No edema Other Extremities comments:: BOTH HANDS ARE SEVERLY DEFORMED WITH SWOLLEN JOINTS. Neuro/Psych: Alert/oriented, DTR's symmetric, Normal sensory exam, Normal motor strength, Judgement/insight normal, Mood normal, Normal gait, No focal deficits Misc: normal gait, Normal back, No paraspinal tenderness Labs/Radiology/EKG Results - Lab Results Results: Laboratory Results - last 24 hr 02/17/17 02/17/17 02/17/17 21:26 21:26 21:26 WBC 7.3 RBC 3.54 L Hgb 10.8 L Hct 31.9 L MCV 90.2 MCH 30.4 MCHC Differential 33.7 RDW 14.0 Plt Count 175 D MPV 8.2 Neutrophils % 60.1 Lymphocytes % 28.4 Monocytes % 9.8 Eosinophils % 1.3 Basophils % 0.4 PT 11.6 H INR 1.11 Sodium Potassium Chloride Carbon Dioxide Anion Gap BUN Creatinine Est GFR ( Amer) Est GFR (Non-Af Amer) BUN/Creatinine Ratio Glucose Calcium Total Bilirubin AST ALT Alkaline Phosphatase Troponin I Total Protein Albumin Globulin Albumin/Globulin Ratio Triglycerides 57 Cholesterol 115 LDL Cholesterol Direct 79 HDL Cholesterol 34 TSH Urine Source Urine Color Urine Clarity Urine pH Ur Specific [place] Urine Protein Urine Glucose (UA) Urine Ketones Urine Blood Urine Nitrate Urine Bilirubin Urine Urobilinogen Ur Leukocyte Esterase Urine RBC Urine WBC Ur Epithelial Cells Urine Bacteria 02/17/17 02/17/17 02/17/17 21:26 21:26 21:26 WBC RBC Hgb Hct MCV MCH MCHC Differential RDW Plt Count MPV Neutrophils % Lymphocytes % Monocytes % Eosinophils % Basophils % PT INR Sodium 139 Potassium 4.1 Chloride 111 H Carbon Dioxide 20.6 L Anion Gap 11.5 BUN 21 Creatinine 0.9 Est GFR ( Amer) TNP Est GFR (Non-Af Amer) TNP BUN/Creatinine Ratio 23.3 Glucose 94 Calcium 9.2 Total Bilirubin 0.4 AST 23 ALT 13 Alkaline Phosphatase 48 Troponin I 0.03 Total Protein 6.7 Albumin 3.6 L Globulin 3.1 Albumin/Globulin Ratio 1.2 Triglycerides Cholesterol LDL Cholesterol Direct HDL Cholesterol TSH 0.04 L Urine Source Urine Color Urine Clarity Urine pH Ur Specific [place] Urine Protein Urine Glucose (UA) Urine Ketones Urine Blood Urine Nitrate Urine Bilirubin Urine Urobilinogen Ur Leukocyte Esterase Urine RBC Urine WBC Ur Epithelial Cells Urine Bacteria 02/17/17 21:55 WBC RBC Hgb Hct MCV MCH MCHC Differential RDW Plt Count MPV Neutrophils % Lymphocytes % Monocytes % Eosinophils % Basophils % PT INR Sodium Potassium Chloride Carbon Dioxide Anion Gap BUN Creatinine Est GFR ( Amer) Est GFR (Non-Af Amer) BUN/Creatinine Ratio Glucose Calcium Total Bilirubin AST ALT Alkaline Phosphatase Troponin I Total Protein Albumin Globulin Albumin/Globulin Ratio Triglycerides Cholesterol LDL Cholesterol Direct HDL Cholesterol TSH Urine Source CLEAN C Urine Color YELLOW Urine Clarity CLEAR Urine pH 6.0 Ur Specific [place] 1.015 Urine Protein NEGATIVE Urine Glucose (UA) NEGATIVE Urine Ketones NEGATIVE Urine Blood TRACE Urine Nitrate NEGATIVE Urine Bilirubin NEGATIVE Urine Urobilinogen 0.2 Ur Leukocyte Esterase NEGATIVE Urine RBC 0-2 Urine WBC NONE SEEN Ur Epithelial Cells NONE SEEN Urine Bacteria NONE SEEN - Radiology Results Results: chest x-ray = nad found - EKG Interpretations EKG Time:: 20:54 Rate & Rhythm: RATE=68 SINUS [place]: LEFT AXIS Comments:: FREQUENT PVCS AND COUPLETS NOTED ED Septic Shock - . Is Septic Shock (SBP<90, OR Lactate>4 mmol\L) present?: No - <6hrs of presentation: Vital Signs: Vital Signs - 8 hr 02/17/17 20:30 Temp 99.0 F HR 73 RR 18 BP 131/55 O2 Sat % 99 Reassessment (Disposition) - Reassessment Reassessment Condition:: Unchanged - Diagnosis Diagnosis:: anorexia dementia osteroarthritis - Aftercare/Follow up Instructions Aftercare/Follow-Up Instructions:: Counseled pt regarding lab results/diagnosis & need follow up, Refer to Discharge Instructions, Counseled pt & family regarding lab results/diagnosis & need follow up - Patient Disposition Discharge/Transfer:: Home Condition at Disposition:: Stable
[2017-02-17 21:41] LABS: % BASOPHILS 0.4 % (0.0-2.0); % EOSINOPHILS 1.3 % (0.0-5.0); % LYMPHOCYTES 28.4 % (20.0-50.0); % MONOCYTES 9.8 % (2.0-10.0); % NEUTROPHILS 60.1 % (40.0-80.0); HEMATOCRIT 31.9 % (35.0-45.0); HEMOGLOBIN 10.8 gm/dL (11.7-16.1); MEAN CELL VOLUME 90.2 fl (81-100); MEAN CORPUSCULAR HEMOGLOBIN 30.4 pg (27.0-31.0); MEAN CORPUSCULAR HGB CONC 33.7 pg (28.0-36.0); MEAN PLATELET VOLUME 8.2 fl; NEUTROPHILE ABSOLUTE 4.4 Th/cmm (1.8-8.0); RED BLOOD COUNT 3.54 Mil/cmm (3.80-5.20); WHITE BLOOD COUNT 7.3 Th/cmm (4.8-10.8)
[2017-02-17 21:45] LABS: PLATELET COUNT 175 Th/cmm (150-400)
[2017-02-17 21:48] LABS: INR 1.11 (0.5-1.4); PROTHROMBIN TIME (TEST) 11.6 SECONDS (9.5-11.5)
[2017-02-17 21:52] LABS: ALB/GLOB RATIO 1.2 (1.0-1.8); ALKALINE PHOSPHATASE 48 U/L (34-104); ANION GAP 11.5 (7.0-16.0); BILIRUBIN,TOTAL 0.4 mg/dL (0.3-1.0); BUN - UREA NITROGEN 21 mg/dL (7-25); BUN/CREATININE RATIO 23.3; CALCIUM SERUM 9.2 mg/dL (8.6-10.3); CARBON DIOXIDE 20.6 mEq/L (21.0-31.0); CHLORIDE 111 mEq/L (98-107); CREATININE - SERUM 0.9 mg/dL (0.6-1.2); GLUCOSE 94 mg/dL (70-105); POTASSIUM SERUM 4.1 mEq/L (3.5-5.1); SGOT 23 U/L (13-39); SGPT/ALT 13 U/L (7-52); SODIUM SERUM 139 mEq/L (136-145)
[2017-02-17 21:53] LABS: CHOLESTEROL 115 mg/dL (<200); TRIGLYCERIDES 57 mg/dL (<150)
[2017-02-17 22:36] LABS: URINE BILIRUBIN NEGATIVE (NEGATIVE); URINE COLOR YELLOW; URINE GLUCOSE (UA) NEGATIVE (NEGATIVE); URINE KETONE NEGATIVE (NEGATIVE)
[2017-02-17 22:37] LABS: URINE BLOOD TRACE (NEGATIVE); URINE PROTEIN NEGATIVE (NEGATIVE); URINE UROBILINOGEN 0.2 E.U./dL (0.2 - 1.0)
[2017-02-17 22:38] LABS: URINE BACTERIA NONE SEEN /hpf (NONE SEEN); URINE EPITHELIAL CELLS NONE SEEN /lpf (FEW); URINE RBC 0-2 /hpf (0-5); URINE WBC NONE SEEN /hpf (0-5)
--- NOTE | 2017-02-18 10:10 | Diagnostic Imaging Report ---
INDICATION: Shortness of breath and chest pain FINDINGS: Heart size is enlarged..Aorta is tortuous. There are sternotomy sutures present.. There are no infiltrates or effusions. Degenerative changes in the thoracic spine. IMPRESSION: Cardiomegaly . Compared to previous exam done 01/25/2017,. No acute cardiopulmonary pathology.
== END 2017-02-17 23:30 | disposition home or self-care (01) ==
LOC: ER 20:27
DX: M19.90 Unspecified osteoarthritis, unspecified site (principal); F03.90 Unspecified dementia, unspecified severity, without behavioral disturbance, psychotic disturbance, mood disturbance, and anxiety; R63.0 Anorexia; I10 Essential (primary) hypertension; E07.9 Disorder of thyroid, unspecified; I25.10 Atherosclerotic heart disease of native coronary artery without angina pectoris; Z95.1 Presence of aortocoronary bypass graft
CPT/HCPCS: 36415-UA; 71010-TC; 80053-TC; 80061-TC; 81001-TC; 84443-TC; 84484-TC; 85025-TC; 85610-TC; 86592-TC; 93005; Z7610